=== PATIENT | female | born 1985 | race Caucasian/White ===

== ENCOUNTER 2022-02-17 04:49 | Emergency (ER) | payer OTHER, SELFPAY ==
[2022-02-17] MEDS ORDERED: Ketorolac Tromethamine 30 MG/ML VIAL ONE (05:04)
[2022-02-17] MEDS ORDERED: Acetaminophen 500 MG TAB ONE (05:04)
== END 2022-02-17 05:46 | disposition home or self-care (01) ==
LOC: ERS 04:49
DX: S63.91XA Sprain of unspecified part of right wrist and hand, initial encounter (principal); F17.210 Nicotine dependence, cigarettes, uncomplicated; X58.XXXA Exposure to other specified factors, initial encounter
CPT/HCPCS: 96372; J1885